=== PATIENT | male | born 1995 | race Caucasian/White ===

== ENCOUNTER 2025-09-11 06:56 | Emergency (ER) | payer BC, SELFPAY ==
[2025-09-11 07:00] VITALS: BP 124/69; PULSE 78; RESP 18; TEMP 36.6; O2SAT 100
[2025-09-11 08:41] VITALS: BP 118/64; PULSE 76; RESP 20; O2SAT 100
--- NOTE | 2025-09-11 09:10 | PC.NURSE ---
Pt refused cat scan due to cost, EDP informed.
[2025-09-11 09:11] LABS: Hematocrit 47.8 % (42.0-52.0); Hemoglobin 15.9 g/dL (14.0-18.0); Immature Granulocyte Percent A 0.2 % (0-0.5); Lymphocytes Absolute Auto 1.17 K/mm3 (0.9-3.2); Mean Corpuscular HGB Conc 33.3 g/dl (32-36); Mean Corpuscular Hemoglobin 29.6 pg (26-34); Mean Corpuscular Volume 89.0 fl (80-100); Nucleated Red Blood Cells Absolute Auto 0.000 K/mm3 (0.0-0.012); Nucleated Red Blood Cells Perc 0.0 % (0.0-0.2); Platelet Count Result 229 k/mm3 (150-375); Red Blood Count 5.37 M/mm3 (4.6-6.20); White Blood Count 5.0 K/mm3 (4.5-10.0)
--- NOTE | 2025-09-11 09:28 | ED.GENADULT ---
HPI - General Adult General Chief complaint: GI Bleed Stated complaint: Hemrrhoid, bleeding Time Seen by Provider: 09/11/25 08:58 History of Present Illness HPI narrative: 30-year-old male present to the emergency department for evaluation for a hemorrhoid that has been worsening over the course of the last few days. Patient reports he was doing leg press felt the pain. Patient states he has had some rectal bleeding. Patient reports he has had multiple hemorrhoids. Related Data Allergies Allergy/AdvReac Type Severity Reaction Status Date / Time No Known Allergies Allergy Verified 09/11/25 07:03 Review of Systems Review of Systems: All systems reviewed & are unremarkable except as noted in HPI and below Exam Narrative: APPEARANCE: Well appearing, no pain, no distress, well-nourished. HEAD: normocephalic, atraumatic. EYES: PERRLA/EOMI, conjunctivae clear. NOSE: Normal no drainage EARS:TMS clear with good light reflex. THROAT: Pharynx clear, no exudate. NECK: Supple. No adenopathy, no masses. RESPIRATORY: Airway patent, respirations nonlabored. Clear to auscultation bilaterally, no rales, rhonchi, wheezing. CARDIOVASCULAR: Regular rate and rhythm without murmurs rubs or gallops. ABDOMINAL: Soft, nontender, nondistended, normal bowel sounds Rectal exam: Thrombosed hemorrhoid MUSCULOSKELETAL: Moves all extremities. Strength/ROM intact, No edema, No calf tenderness. NEURO: Alert. Cranial nerves II through XII intact. Good gait. Good coordination SKIN: Warm, dry. Normal Color Course Vital Signs Vital signs: Vital Signs Temperature 97.9 F 09/11/25 07:00 Pulse Rate 78 09/11/25 07:00 Respiratory Rate 18 09/11/25 07:00 Blood Pressure 124/69 09/11/25 07:00 Pulse Oximetry 100 09/11/25 07:00 Oxygen Delivery Room Air 09/11/25 07:00 Temperature 97.9 F 09/11/25 07:00 Pulse Rate 76 09/11/25 08:41 Respiratory Rate 20 09/11/25 08:41 Blood Pressure 118/64 09/11/25 08:41 Pulse Oximetry 100 09/11/25 08:41 Oxygen Delivery Room Air 09/11/25 07:00 Medical Decision Making [facility] Narrative Medical decision making narrative: The 80-year-old male present to the emergency department for evaluation for worsening hemorrhoid pain occurred. Patient does have a thrombosed hemorrhoid was excised in the emergency department. Area was anesthetized with lidocaine with epi and hemorrhoid was excised with an 11 blade and clot was extracted with forceps. Patient had no significant bleeding. Patient did feel improved afterwards. Patient is afebrile no leukocytosis hemoglobin of 15.9 and platelets of 229. Patient had significant improvement of his discomfort after removal of clot from the thrombosed hemorrhoid. Patient will continue have close outpatient follow-up with surgery. Differential Diagnosis Differential Diagnosis: Thrombosed hemorrhoid, hemorrhoid Vital Signs Vital Signs: Vital Signs Temperature 97.9 F 09/11/25 07:00 Pulse Rate 78 09/11/25 07:00 Respiratory Rate 18 09/11/25 07:00 Blood Pressure 124/69 09/11/25 07:00 Pulse Oximetry 100 09/11/25 07:00 Oxygen Delivery Room Air 09/11/25 07:00 Temperature 97.9 F 09/11/25 07:00 Pulse Rate 76 09/11/25 08:41 Respiratory Rate 20 09/11/25 08:41 Blood Pressure 118/64 09/11/25 08:41 Pulse Oximetry 100 09/11/25 08:41 Oxygen Delivery Room Air 09/11/25 07:00 Lab Data Lab results reviewed: Yes I reviewed the patient's lab results. 09/11/25 09:06 09/11/25 09:06 Labs: Lab Results 09/11/25 Range/Units 09:06 WBC 5.0 (4.5-10.0) K/mm3 RBC 5.37 (4.6-6.20) M/mm3 Hgb 15.9 (14.0-18.0) g/dL Hct 47.8 (42.0-52.0) % MCV 89.0 (80-100) fl MCH 29.6 (26-34) pg MCHC 33.3 (32-36) g/dl RDW 13.1 (11.5-14.5) % Plt Count 229 (150-375) k/mm3 MPV 9.4 (7.4-10.4) fl Immature Gran % (Auto) 0.2 (0-0.5) % Neut % (Auto) 63.6 (45.5-73.1) % Lymph % (Auto) 23.4 (18.3-44.2) % [place] % (Auto) 9.4 H (2.6-8.5) % Eos % (Auto) 2.8 (0-4.4) % Baso % (Auto) 0.6 (0.2-1.2) % Lymph # (Auto) 1.17 (0.9-3.2) K/mm3 [place] # (Auto) 0.5 (0.1-0.6) K/mm3 Eos # (Auto) 0.1 (0-0.3) K/mm3 Baso # (Auto) 0.0 (0.0-0.1) K/mm3 Abs Immat Gran (auto) 0.01 (0.00-0.031) K/mm3 Absolute Neuts (auto) 3.2 (1.3-6.7) K/mm3 Absolute Nucleated RBC 0.000 (0.0-0.012) K/mm3 Nucleated RBC % 0.0 (0.0-0.2) % PT 14.5 (11.1-14.7) Seconds INR 1.1 APTT 28.3 (22.3-36.8) Seconds Sodium 136 L (137-145) mmol/L Potassium 4.6 (3.4-5.0) mmol/L Chloride 100 (98-107) mmol/L Carbon Dioxide 31 H (22-30) mmol/L Anion Gap 5 (4-12) mmol/L BUN 31 H (9-20) mg/dL Creatinine 1.71 H (0.7-1.3) mg/dL Estim Creat Clear Calc 59 ml/min Estimated GFR 47 L (59 - ) Glucose 73 (65-110) mg/dL Calcium 9.4 (8.4-10.2) mg/dL Total Bilirubin 0.5 (0.2-1.3) mg/dL AST 40 (17-59) U/L ALT 35 (6-50) U/L Alkaline Phosphatase 63 (38-126) U/L Total Protein 7.3 (6.3-8.2) g/dL Albumin 4.4 (3.5-5.1) g/dL Discharge Plan Discharge Clinical Impression: External hemorrhoid, thrombosed Patient Disposition: Home Condition: Stable Instructions: Antibiotic Form, Hemorrhoids (ED), Sitz Bath (DC) Additional Instructions: Follow a high-fiber diet, MiraLax as needed to help soften stool. Sitz baths as directed. Have close outpatient follow-up with surgery. If you have any worsening symptoms please call or return to the emergency department. Patient Language: K[place] Follow-up/Referrals: Cecile Dubon MD [Physician, General Surgery] Nikunj Veloz MD [Primary Care Provider, Hospitalist]
[2025-09-11 09:32] LABS: INR 1.1; Prothrombin Time 14.5 Seconds (11.1-14.7)
[2025-09-11 09:33] LABS: Alanine Aminotransferase 35 U/L (6-50); Albumin Level 4.4 g/dL (3.5-5.1); Alkaline Phosphatase 63 U/L (38-126); Anion Gap 5 mmol/L (4-12); Aspartate Amino Transferase 40 U/L (17-59); Bilirubin,Total 0.5 mg/dL (0.2-1.3); Blood Urea Nitrogen 31 mg/dL (9-20); Calcium 9.4 mg/dL (8.4-10.2); Carbon Dioxide 31 mmol/L (22-30); Chloride 100 mmol/L (98-107); Estimated CRCL calculation 59 ml/min; Estimated Glomerular Filt Rate 47; Glucose 73 mg/dL (65-110); Partial Thromboplastin Time 28.3 Seconds (22.3-36.8); Potassium 4.6 mmol/L (3.4-5.0); Sodium 136 mmol/L (137-145); Total Protein 7.3 g/dL (6.3-8.2)
== END 2025-09-11 10:45 | disposition home or self-care (01) ==
PROVIDERS: Emergency Provider Emergency Medicine; PCP Internal Medicine
DX: K64.5 Perianal venous thrombosis (principal)
CPT/HCPCS: 36415; 80053; 85025; 85610; 85730; 99283